=== PATIENT | male | born 1975 | race Hispanic/Latino ===

== ENCOUNTER 2022-04-22 09:59 | Emergency (ER) | payer OTHER ==
[~2022-04-22] VITALS: Ht 167.6 cm; Wt 95.3 kg
[~2022-04-22 09:59] MED LIST: CIPR500T10 PO; DOXY100T2 PO; LISI10TA24 PO
[2022-04-22 11:50] VITALS: BP 108/67
[2022-04-22] MEDS ORDERED: NAPR375T6 PO (11:52)
[2022-04-22] MEDS ORDERED: KETOROLAC 30MG VIAL (30MG/ML) ONE (11:58)
[2022-04-22] MEDS ORDERED: KETOROLAC 30MG VIAL (30MG/ML) IM ONE (12:00)
== END 2022-04-22 12:12 | disposition home or self-care (01) ==
LOC: EDH 09:59
DX: S46.912A Strain of unspecified muscle, fascia and tendon at shoulder and upper arm level, left arm, initial encounter (principal); E11.9 Type 2 diabetes mellitus without complications; I10 Essential (primary) hypertension; Z79.899 Other long term (current) drug therapy; Z90.49 Acquired absence of other specified parts of digestive tract; X58.XXXA Exposure to other specified factors, initial encounter; Y93.89 Activity, other specified; Y92.89 Other specified places as the place of occurrence of the external cause; Y99.8 Other external cause status
CPT/HCPCS: 99283; 73030; 96372; J1885